=== PATIENT | male | born 1945 | race Caucasian/White ===

== ENCOUNTER 2021-03-15 22:12 | Inpatient (IN) | payer MEDICARE, OTHER ==
[~2021-03-15] VITALS: Ht 170.2 cm; Wt 111.1 kg
--- NOTE | 2021-03-15 22:35 | NUR ---
PATIENT BIBRA 60 C/O SOB STARTED AT 3PM, PT GIVEN 2.4 NITRO PAYROLL HUMAN RESOURCES ASSISTANT. PATIENT IS A/O X 4, RR LABORED, ON 15L 02. PATIENT IS CONNECTED TO TECHNICAL DESIGNER AND POX. WILL CONTINUE TO MONITOR.
[2021-03-15 23:11] LABS: BASOPHILS % (AUTO) 0.9 % (0.0-2.0); EOSINOPHILS % (AUTO) 0.1 % (0.0-6.0); HEMATOCRIT 40 % (39-51); HEMOGLOBIN 13.6 g/dL (13.5-17.5); LYMPHOCYTES # (AUTO) 0.5 K/uL (0.8-4.8); LYMPHOCYTES % (AUTO) 16.7 % (20.0-44.0); MEAN CORPUSCULAR HGB CONC 34 g/dl (31.0-36.0); MEAN CORPUSCULAR VOLUME 101 fL (80-96); MONOCYTES # (AUTO) 0.4 K/uL (0.1-1.30); MONOCYTES % (AUTO) 11.5 % (2.0-12.0); NEUTROPHILS # (AUTO) 2.3 K/uL (1.8-8.9); NEUTROPHILS % (AUTO) 70.8 % (43.0-81.0); PLATELET COUNT (AUTO) 127 K/uL (150-450); RED BLOOD CELL COUNT(AUTO) 3.94 MIL/uL (4.5-6.0); WHITE BLOOD COUNT (AUTO) 3.3 K/uL (4.3-11.0)
--- NOTE | 2021-03-15 23:14 | NUR ---
septic technician at pt's bedside
[2021-03-16 00:04] LABS: ALANINE AMINOTRANSFERASE 31 U/L (12-78); ALBUMIN 2.7 g/dL (3.4-5.0); ALKALINE PHOSPHATASE 39 U/L (46-116); ASPARTATE AMINOTRANSFERASE 43 U/L (15-37); BILIRUBIN,DIRECT 0.2 mg/dL (0.0-0.2); BILIRUBIN,TOTAL 0.5 mg/dL (0.2-1.0); CALCIUM, SERUM 7.5 mg/dL (8.5-10.1); CARBON DIOXIDE 23 mmol/L (21-32); CHLORIDE 95 mmol/L (98-107); CREATININE 1.4 mg/dL (0.6-1.3); GLUCOSE 251 mg/dL (74-106); POTASSIUM 3.9 mmol/L (3.5-5.1); SODIUM SERUM 129 mmol/L (136-145); TOTAL PROTEIN, SERUM 6.7 g/dL (6.4-8.2); UREA NITROGEN, BLOOD 29 mg/dL (7-18)
[2021-03-16] MEDS ORDERED: DOXYCYCLINE 100 MG in IV D5W 100 ML IV ONE (00:30)
[2021-03-16] MEDS ORDERED: ASPIRIN 325 MG TABLET PO ONE (00:30)
[2021-03-16] MEDS ORDERED: CEFTRIAXONE 1GM BAG (ER ONLY) 1 GM/50 ML PIGGYBACK IV ONE (00:30)
--- NOTE | 2021-03-16 00:39 | NUR ---
[place] in [place] - 03/16/21 at 0040 by BETO PT COVID ANTIGEN (+); NOTIFIED MARYLOU DE LA TORRE
--- NOTE | 2021-03-16 00:40 | NUR ---
PT COVID ANTIGEN (+); NOTIFIED KAYLEN DE LA TORRE
[2021-03-16] MEDS ORDERED: DOXYCYCLINE 100 MG VIAL ONE (00:51)
[2021-03-16] MEDS ORDERED: DEXAMETHASONE SOD PHOSPHATE 10 MG/ML VIAL ONE ×2 (00:51→08:18)
[2021-03-16] MEDS ORDERED: ASPIRIN 325 MG TABLET ONE (00:51)
[2021-03-16] MEDS ORDERED: CEFTRIAXONE 1GM BAG (ER ONLY) 50 ML IV ONE (00:51)
[2021-03-16] MEDS ORDERED: DEXAMETHASONE SOD PHOSPHATE 10 MG/ML VIAL IV ONE (01:00)
[2021-03-16] MEDS ORDERED: ACETAMINOPHEN 325 MG TABLET PO PRN (01:30)
[2021-03-16] MEDS ORDERED: DEXTROSE 50%-WATER 50 ML DISP.SYRIN IV PRN (01:30)
[2021-03-16] MEDS ORDERED: ONDANSETRON HCL/PF 4 MG/2 ML VIAL IVP PRN (01:30)
[2021-03-16] MEDS: IV NS 0.9% 1,000 ML IV PRN (01:50)
[2021-03-16] MEDS ORDERED: HEPARIN SODIUM, PORCINE 5000 UNITS/1 ML VIAL ONE ×2 (02:02→08:18)
[2021-03-16] MEDS: HEPARIN SODIUM, PORCINE 5000 UNITS/1 ML VIAL SQ SCH ×2 (02:03→08:35)
[2021-03-16 02:49] LABS: D-DIMER 0.83 mg/L(FEU (0.17-0.50)
--- NOTE | 2021-03-16 04:53 | NUR ---
EMPTY THE URINAL WITH URINE OUT PUT OF 500 ML
[2021-03-16] MEDS ORDERED: MYRBETRIQ PO (07:17)
[2021-03-16] MEDS ORDERED: AMIO200T5 PO (07:17)
[2021-03-16] MEDS ORDERED: EMPA25TA PO (07:17)
[2021-03-16] MEDS ORDERED: APIX5TAB PO (07:17)
[2021-03-16] MEDS ORDERED: FURO40TA5 PO (07:17)
[2021-03-16] MEDS ORDERED: BACL10TA PO (07:17)
[2021-03-16] MEDS ORDERED: SPIR25TA6 PO (07:17)
[2021-03-16] MEDS ORDERED: ICOS1CAP PO (07:17)
[2021-03-16] MEDS ORDERED: TAMS-12 PO (07:17)
[2021-03-16] MEDS ORDERED: CARV6.252 PO (07:17)
[2021-03-16] MEDS ORDERED: DIGO125T PO (07:17)
[2021-03-16] MEDS ORDERED: INSU100I4 SQ (07:17)
[2021-03-16] MEDS ORDERED: SACU1TAB7 PO (07:17)
[2021-03-16] MEDS ORDERED: VERQUVO PO (07:17)
[2021-03-16] MEDS ORDERED: ATOR40TA PO (07:17)
[2021-03-16] MEDS ORDERED: LEVO100T PO (07:17)
[2021-03-16] MEDS ORDERED: RANO500T6 PO (07:17)
[2021-03-16] MEDS ORDERED: VENL75CA62 PO (07:17)
--- NOTE | 2021-03-16 08:11 | NUR ---
BLOOD GLUCOSE WAS 262, 6 UNITS OF INSULIN WAS GIVEN PER SLIDING SCALE
[2021-03-16] MEDS: DEXAMETHASONE SOD PHOSPHATE 4 MG/ML VIAL IV SCH (08:21)
[2021-03-16] MEDS: INSULIN REGULAR, HUMAN 100 UNIT/ML 3 ML VIAL SQ PRN ×4 (08:21→22:25)
[2021-03-16] MEDS: BLOOD SUGAR DIAGNOSTIC 1 EACH STRIP IN SCH ×4 (08:28→22:21)
--- NOTE | 2021-03-16 09:11 | NUR ---
PUT PT ON A SIMPLAE MASK 6L, TOLERATED WELL
[2021-03-16 11:24] LABS: FERRITIN 3261 ng/mL (8-388)
--- NOTE | 2021-03-16 11:36 | NUR ---
BED GIVEN 103
--- NOTE | 2021-03-16 11:52 | NUR ---
REPORT GIVEN TO BRANDON FOR COSME
[2021-03-16] MEDS ORDERED: REMDESIVIR (CHARGED) 200 MG, *LOADING DOSE 1 EA in IV NS 0.9% 210 ML IV ONE (12:30)
[2021-03-16 16:00] VITALS: BP 133/73
[2021-03-16] MEDS: CARVEDILOL 6.25 MG TABLET PO SCH (17:48)
[2021-03-16] MEDS: AMIODARONE HCL 200 MG TABLET PO SCH (17:48)
[2021-03-16] MEDS: RANOLAZINE 500 MG TAB.ER.12H PO SCH (17:48)
[2021-03-16] MEDS: BACLOFEN (10 MG) 10 MG TABLET PO SCH (17:48)
--- NOTE | 2021-03-16 18:45 | NUR ---
GREY ROLL MAN CLOSING NOTES PATIENT IN BED, A/O X4 (PASHTO SPEAKING), REMAINED STABLE THROUGH OUT THE SHIFT. PATIENT ON 15 LPM VIA NON-REBREATHER MASK , NO SOB NOTED, NO S/S OF DISTRESS NOTED. PATIENT WITH LEFT HAND PERIPHERAL LINE #20. RUNNING WITH NS @ 50CC/HR. ALL DUE MEDS GIVEN ORDERED. ALL SAFETY MEASURE IN PLACE. BED ON LOWEST POSITION, LOCKED BED ALARM ARMED. CALL LIGHT WITHIN REACH. WILL ENDORSE TO EXTENSION ASSOCIATE NURSE.
[2021-03-16] MEDS: APIXABAN 5 MG TABLET PO SCH (18:51)
--- NOTE | 2021-03-16 19:10 | NUR ---
RN NOTE RECEIVE PATIENT IN BED RESTING ALERT ORIENTEDX4 KITTITIAN SPEAKING VERBALLY RESPONSIVE ON 15L NON REBREATHER MASK O2:95%,AMBULATORY,CONTINET BOWEL/BLADDER, IV SITE IS ON LEFT HAND INTACT PATENT ON IV HYDRATION NS 50CC/HR,SAFETY MEASURE IMPLEMENT BED IN LOW POSITON AND LOCKED CALL LIGHT WITHIN REACH CONTINUE TO MONITOR.
[2021-03-16 20:00] VITALS: BP 108/68
[2021-03-16] MEDS ORDERED: CEFTRIAXONE 1 G in IV D5W 50 ML IV SCH (20:00)
[2021-03-16] MEDS: CEFTRIAXONE 2 G in IV D5W 100 ML IV SCH (20:48)
[2021-03-16] MEDS: ATORVASTATIN 40 MG TABLET PO SCH (22:22)
[2021-03-17] VITALS: BP 130/71
[2021-03-17 04:00] VITALS: BP 98/73
--- NOTE | 2021-03-17 06:38 | NUR ---
RN NOTE PATIENT REMAINS ON ALERT ORIENTED X4 ON 15L NON REBREATHER MASK O2:96% IV SITE IS ON LEFT HAND ON IV HYDRATION NS 50CC/HR ALL DUE MEDS GIVEN MD ORDERED KEPT CALL LIGHT WITHIN REACH ALL NEEDS MET ENDORSE NEXT COMING SHIFT FOR CONTINUATION OF CARE.
[2021-03-17 06:41] LABS: BASOPHILS % (AUTO) 0.1 % (0.0-2.0); HEMATOCRIT 42 % (39-51); HEMOGLOBIN 14.6 g/dL (13.5-17.5); LYMPHOCYTES # (AUTO) 0.6 K/uL (0.8-4.8); LYMPHOCYTES % (AUTO) 7.3 % (20.0-44.0); MEAN CORPUSCULAR HGB CONC 34 g/dl (31.0-36.0); MEAN CORPUSCULAR VOLUME 100 fL (80-96); MONOCYTES # (AUTO) 0.8 K/uL (0.1-1.30); MONOCYTES % (AUTO) 10.9 % (2.0-12.0); NEUTROPHILS # (AUTO) 6.2 K/uL (1.8-8.9); NEUTROPHILS % (AUTO) 81.7 % (43.0-81.0); PLATELET COUNT (AUTO) 173 K/uL (150-450); RED BLOOD CELL COUNT(AUTO) 4.22 MIL/uL (4.5-6.0); WHITE BLOOD COUNT (AUTO) 7.6 K/uL (4.3-11.0)
[2021-03-17 07:30] LABS: ALANINE AMINOTRANSFERASE 32 U/L (12-78); ALBUMIN 2.7 g/dL (3.4-5.0); ALKALINE PHOSPHATASE 37 U/L (46-116); ASPARTATE AMINOTRANSFERASE 62 U/L (15-37); BILIRUBIN,DIRECT 0.2 mg/dL (0.0-0.2); BILIRUBIN,TOTAL 0.5 mg/dL (0.2-1.0); CALCIUM, SERUM 7.7 mg/dL (8.5-10.1); CARBON DIOXIDE 21 mmol/L (21-32); CHLORIDE 96 mmol/L (98-107); CREATININE 1.4 mg/dL (0.6-1.3); GLUCOSE 231 mg/dL (74-106); MAGNESIUM 2.7 mg/dL (1.8-2.4); PHOSPHORUS 3.2 mg/dL (2.5-4.9); POTASSIUM 4.4 mmol/L (3.5-5.1); SODIUM SERUM 131 mmol/L (136-145); TOTAL PROTEIN, SERUM 7.3 g/dL (6.4-8.2); UREA NITROGEN, BLOOD 42 mg/dL (7-18)
[2021-03-17] MEDS: BLOOD SUGAR DIAGNOSTIC 1 EACH STRIP IN SCH ×4 (07:30→21:32)
[2021-03-17 07:33] LABS: CHOLESTEROL 126 mg/dL (<200); HDL CHOLESTEROL 41 mg/dL (40-60); LDL 70 mg/dL (0-99); TRIGLYCERIDES 91 mg/dL (30-150)
[2021-03-17 08:00] VITALS: BP 124/89
[2021-03-17] MEDS: RANOLAZINE 500 MG TAB.ER.12H PO SCH ×2 (08:13→17:02)
[2021-03-17] MEDS: TAMSULOSIN 0.4 MG CAP.SR.24H PO SCH ×2 (08:13→17:02)
[2021-03-17] MEDS: DEXAMETHASONE SOD PHOSPHATE 4 MG/ML VIAL IV SCH (08:14)
[2021-03-17] MEDS: AMIODARONE HCL 200 MG TABLET PO SCH ×2 (08:14→17:02)
[2021-03-17] MEDS: VENLAFAXINE XR 75 MG CAP.SR.24H PO SCH (08:15)
[2021-03-17] MEDS: DIGOXIN 0.125 MG TABLET PO SCH (08:15)
[2021-03-17] MEDS: CARVEDILOL 6.25 MG TABLET PO SCH ×2 (08:15→17:01)
[2021-03-17] MEDS: BACLOFEN (10 MG) 10 MG TABLET PO SCH ×2 (08:15→17:02)
[2021-03-17] MEDS: LEVOTHYROXINE SODIUM 100 MCG TABLET PO SCH (08:15)
[2021-03-17] MEDS: SPIRONOLACTONE 25 MG TABLET PO SCH (08:15)
[2021-03-17] MEDS: APIXABAN 5 MG TABLET PO SCH ×2 (08:16→17:02)
[2021-03-17] MEDS: INSULIN REGULAR, HUMAN 100 UNIT/ML 3 ML VIAL SQ PRN ×4 (08:36→21:33)
[2021-03-17] MEDS ORDERED: Medication Not On Formulary EA ([Myrbetriq] 50 MG) PO SCH (09:00)
[2021-03-17] MEDS ORDERED: VERQUVO PO SCH (09:00)
[2021-03-17] MEDS ORDERED: Medication Not On Formulary EA (Sacubitril/Valsartan (Entresto 49 mg-51 mg Tablet) 1 TAB PO SCH (09:00)
[2021-03-17 12:00] VITALS: BP 144/98
[2021-03-17] MEDS ORDERED: REMDESIVIR (CHARGED) 100 MG in IV NS 0.9% 100 ML IV SCH (13:00)
[2021-03-17 16:00] VITALS: BP 121/85
--- NOTE | 2021-03-17 19:10 | NUR ---
RN NOTE RECEIVED PATIENT IN BED RESTING ALERT ORIENTEDX4 [place] SPEAKING ON 15L OXYGEN ON NON REBREATHER O2:94% IV SITE IS ON LEFT SIDE INTACT PATENT,ON IV HYDRATION NS 50CC/HR,URINAL ON BEDSIDE,KEEP CALL LIGHT WITHIN REACH,CONTINUE TO MONITOR.
[2021-03-17] MEDS: CEFTRIAXONE 2 G in IV D5W 100 ML IV SCH (19:28)
[2021-03-17 20:00] VITALS: BP 112/66
[2021-03-17] MEDS: ATORVASTATIN 40 MG TABLET PO SCH (21:48)
[2021-03-18] VITALS: BP 130/68
--- NOTE | 2021-03-18 02:12 | NUR ---
RN NOTE REPORT GIVEN TO ALEXEI SHAIKH FOR CONTINUATION OF CARE.
--- NOTE | 2021-03-18 03:00 | NUR ---
ALCON RN NOTE RECEIVED PATIENT AT THIS TIME. WILL CONTINUE WITH PLAN OF CARE FOR PATIENT.
[2021-03-18] MEDS: IV NS 0.9% 1,000 ML IV PRN (03:10)
[2021-03-18 04:00] VITALS: BP 113/67
--- NOTE | 2021-03-18 06:48 | NUR ---
COPPER PLATE PRINTERHAND FRAME SURGICAL ELASTIC KNITTER RN PATIENT IN SITTING ON THE BED IN TRIPOD POSITION. A/OX4. NO S/S OF APPARENT DISTRESS ON 15LPM OF O2 VIA NON-REBREATHER MASK. DENIES PAIN AT THIS TIME. TELE MONITOR READING SR 60 BPM. LO. HAND AC RUNNING NS @50 CC/HR. NEEDS ATTENDED AT THE MOMENT. SCHEDULED MEDICATION ADMINISTERED. SAFETY IN PLACE. WILL GIVE REPORT TO MORNING RN FOR CONTINUITY OF CARE.
--- NOTE | 2021-03-18 07:28 | NUR ---
RN NOTE PATIENT RECEIVED SITTING ON THE BED IN TRIPOD POSITION. A/OX4. NO S/S OF APPARENT DISTRESS OR SOB AT THIS TIME BREATHING EVEN AND UNLABORED, ON 15LPM OF O2 VIA NON-REBREATHER MASK SAT 94%. DENIES PAIN AT THIS TIME. TELE MONITOR READING SR 62 BPM. LEFT HAND AC #20 RUNNING NS @50 CC/HR. SAFETY MEASURES IN PLACE. BED LOCKED AND IN LOWEST POSITION CALL LIGHT WITHIN REACH WILL CONTINUE TO MONITOR
[2021-03-18] MEDS: BLOOD SUGAR DIAGNOSTIC 1 EACH STRIP IN SCH ×2 (07:58→12:05)
[2021-03-18 08:00] VITALS: BP 130/68
[2021-03-18] MEDS: TAMSULOSIN 0.4 MG CAP.SR.24H PO SCH (08:14)
[2021-03-18] MEDS: CARVEDILOL 6.25 MG TABLET PO SCH (08:14)
[2021-03-18] MEDS: RANOLAZINE 500 MG TAB.ER.12H PO SCH (08:14)
[2021-03-18] MEDS: LEVOTHYROXINE SODIUM 100 MCG TABLET PO SCH (08:14)
[2021-03-18] MEDS: SPIRONOLACTONE 25 MG TABLET PO SCH (08:15)
[2021-03-18] MEDS: VENLAFAXINE XR 75 MG CAP.SR.24H PO SCH (08:15)
[2021-03-18] MEDS: DIGOXIN 0.125 MG TABLET PO SCH (08:15)
[2021-03-18] MEDS: AMIODARONE HCL 200 MG TABLET PO SCH (08:15)
[2021-03-18] MEDS: BACLOFEN (10 MG) 10 MG TABLET PO SCH (08:15)
[2021-03-18] MEDS: APIXABAN 5 MG TABLET PO SCH (08:18)
[2021-03-18] MEDS: INSULIN REGULAR, HUMAN 100 UNIT/ML 3 ML VIAL SQ PRN ×2 (08:21→12:34)
[2021-03-18] MEDS ORDERED: DEXAMETHASONE SOD PHOSPHATE 10 MG/ML VIAL IV SCH (09:00)
[2021-03-18 09:09] LABS: ALBUMIN 2.3 g/dL (3.4-5.0); BILIRUBIN,DIRECT 0.1 mg/dL (0.0-0.2); BILIRUBIN,TOTAL 0.6 mg/dL (0.2-1.0); CALCIUM, SERUM 7.9 mg/dL (8.5-10.1); CREATININE 0.9 mg/dL (0.6-1.3); MAGNESIUM 3.1 mg/dL (1.8-2.4); PHOSPHORUS 2.6 mg/dL (2.5-4.9); POTASSIUM 5.1 mmol/L (3.5-5.1); TOTAL PROTEIN, SERUM 6.6 g/dL (6.4-8.2)
[2021-03-18 09:37] LABS: BASOPHILS % (AUTO) 0.1 % (0.0-2.0); EOSINOPHILS % (AUTO) 0.6 % (0.0-6.0); HEMATOCRIT 41 % (39-51); LYMPHOCYTES # (AUTO) 0.3 K/uL (0.8-4.8); LYMPHOCYTES % (AUTO) 3.4 % (20.0-44.0); MEAN CORPUSCULAR HGB CONC 34 g/dl (31.0-36.0); MEAN CORPUSCULAR VOLUME 102 fL (80-96); MONOCYTES % (AUTO) 10.2 % (2.0-12.0); NEUTROPHILS # (AUTO) 8.5 K/uL (1.8-8.9); NEUTROPHILS % (AUTO) 85.7 % (43.0-81.0); PLATELET COUNT (AUTO) 186 K/uL (150-450); RED BLOOD CELL COUNT(AUTO) 4.03 MIL/uL (4.5-6.0); WHITE BLOOD COUNT (AUTO) 9.9 K/uL (4.3-11.0)
[2021-03-18 12:00] VITALS: BP 111/64
--- NOTE | 2021-03-18 12:00 | NUR ---
RN NOTE SPOKE TO SON AND DAUGHTER THEY SEEMS VERY UPSET BECAUSE THE HAVEN'T BEEN ABLE TO TALK TO THE DOCTOR, DOCTOR SAMUEL NOTIFIED WITH PHONE NUMBER FROM FAMILY MEMBER PROVIDED
--- NOTE | 2021-03-18 13:00 | NUR ---
RN NOTE patient called and wanted to leave hospital, refused to wear oxygen, education provided and explained to the patient and daughter on [address] phone conversation that pt. can without oxygen and the consequences involved, per daughter "i will bring my dad to the another hospital" explained to patient that he is getting the treatment required for covid pt. still insisted to leave and sign AMA form. NURSING ATHLETIC TEAM PHYSICIAN NOTIFIED
--- NOTE | 2021-03-18 13:00 | NUR ---
received a call from patient son upset that nobody from doctor calling them regarding pdate of pt. monserrat fermin explained that the drJes assigned is dr. acosta and already gave their phone numbers to update them.
--- NOTE | 2021-03-18 13:10 | NUR ---
patient called and wanted to leave hospital refused to wear oxygen.explained to the patient and daughter on 3 [address] phone conversation that pt. can without oxygen,per daughter "i will bring my dad to the other hospital,explained to patient that he is getting the treatment required for covid pt.still insisted to leave and dar ama form.
== END 2021-03-18 13:34 | disposition left against medical advice (07) | DRG 177 ==
LOC: ER 22:18 → TRANSITION 03-16 01:05 → TELE-TD 03-16 12:19 → TELE1 03-17 15:32
PROVIDERS: ADMIT Nurse Practitioner Acute Care; ATTEND Student in an Organized Health Care Education/Training Program
PROC: XW033E5 Introduction of Remdesivir Anti-infective into Peripheral Vein, Percutaneous Approach, New Technology Group 5 (ICD-10-PCS; principal; 2021-03-17)
DX: U07.1 COVID-19 (principal); J12.82 Pneumonia due to coronavirus disease 2019; N17.0 Acute kidney failure with tubular necrosis; I21.A1 Myocardial infarction type 2; J15.9 Unspecified bacterial pneumonia; J96.01 Acute respiratory failure with hypoxia; I50.33 Acute on chronic diastolic (congestive) heart failure; E44.0 Moderate protein-calorie malnutrition; D68.59 Other primary thrombophilia; I13.0 Hypertensive heart and chronic kidney disease with heart failure and stage 1 through stage 4 chronic kidney disease, or unspecified chronic kidney disease; E22.2 Syndrome of inappropriate secretion of antidiuretic hormone; Z95.0 Presence of cardiac pacemaker; E86.1 Hypovolemia; E66.01 Morbid (severe) obesity due to excess calories; I25.10 Atherosclerotic heart disease of native coronary artery without angina pectoris; Z68.38 Body mass index [BMI] 38.0-38.9, adult; Z53.29 Procedure and treatment not carried out because of patient's decision for other reasons; N18.9 Chronic kidney disease, unspecified; E11.22 Type 2 diabetes mellitus with diabetic chronic kidney disease; I08.0 Rheumatic disorders of both mitral and aortic valves; Z87.891 Personal history of nicotine dependence
CPT/HCPCS: 36415; 71045-TC; 80048-TC; 80061-TC; 80076-TC; 80162-TC; 82728-TC; 82962-TC; 83605-TC; 83615-TC; 83735-TC; 83880; 84100-TC; 84484-TC; 85025-TC; 85378-TC; 85610-TC; 85730-TC; 86140-TC; 87040-TC; 87081-TC; 93307-TC; A4216; G0378; J0696; J1100; J1644; J1815; J2405; J3490; J7030; J7050; J7060; U0003